=== PATIENT | female | born 1950 | race Caucasian/White ===

== ENCOUNTER 2017-05-06 03:53 | Emergency (ER) | payer MEDICARE, OTHER ==
[~2017-05-06] VITALS: Ht 154.9 cm; Wt 90.7 kg
--- NOTE | 2017-05-06 04:20 | NUR ---
PT A/OX4 BREATHING EFFORTLESSLY ON ROOM AIR, PT C/O RIGHT CALF PAIN X 5 HOURS TAKER AWAY, PT STATES SHE WAS SLEEPING AND WOKE UP FROM THE PAIN, PT ON MONITOR, MD MADE AWARE WILL CONTINUE TO MONITOR.
[2017-05-06] MEDS ORDERED: HYDROCODONE/APAP 5/325MG 1 EACH TABLET ONE (04:53)
[2017-05-06] MEDS ORDERED: HYDROCODONE/APAP 5/325MG 1 EACH TABLET PO ONE (05:00)
--- NOTE | 2017-05-06 05:00 | NUR ---
NORA WAS OUT IN ER [facility], WENT TO [facility] TO GET MEDICATION
[2017-05-06 06:23] VITALS: BP 165/78
== END 2017-05-06 06:24 | disposition home or self-care (01) ==
LOC: ER 03:54
DX: M54.30 Sciatica, unspecified side (principal); E11.9 Type 2 diabetes mellitus without complications; I10 Essential (primary) hypertension; Z86.718 Personal history of other venous thrombosis and embolism
CPT/HCPCS: 93970; 99284; A4606; Z7610

== ENCOUNTER 2018-09-04 02:07 | Emergency (ER) | payer MEDICARE, OTHER ==
[~2018-09-04] VITALS: Ht 167.6 cm; Wt 90.3 kg
--- NOTE | 2018-09-04 02:15 | NUR ---
BIB [facility] FROM HOME. AAOX4. NAD, BREATHING EVEN AND UNLABORED. NO CP. NO N/V. SPEAKS MINIMAL [place] BUT UNDERSTANDS. PT IS AMBULATORY. C/O BURNING SENSATION AND PAIN OF 5/10 ON BILATERAL LEGS BELOW THE KNEE. DENIES FOR ANY TRAUMA OR FALL. MD AT BEDSIDE FOR EVAL.
--- NOTE | 2018-09-04 02:40 | NUR ---
IV LINE OBTAINED ON R AC 20G. BLOOD DRAWN AND SENT TO LAB
[2018-09-04 02:56] LABS: BASOPHILS # (AUTO) 0.1 /CMM (0.0-0.2); BASOPHILS % (AUTO) 1.2 % (0.0-2.0); EOSINOPHILS % (AUTO) 3.4 % (0.0-6.0); HEMATOCRIT 40 % (33-45); HEMOGLOBIN 13.4 g/dL (11.5-14.8); LYMPHOCYTES # (AUTO) 3.2 /CMM (0.8-4.8); LYMPHOCYTES % (AUTO) 42.3 % (20.0-44.0); MEAN CORPUSCULAR HGB CONC 34 g/dl (31.0-36.0); MEAN CORPUSCULAR VOLUME 89 fL (82-100); MONOCYTES # (AUTO) 0.5 /CMM (0.1-1.30); MONOCYTES % (AUTO) 6.7 % (2.0-12.0); NEUTROPHILS # (AUTO) 3.5 /CMM (1.8-8.9); NEUTROPHILS % (AUTO) 46.4 % (43.0-81.0); PLATELET COUNT (AUTO) 257 /CMM (150-450); RED BLOOD CELL COUNT(AUTO) 4.51 MIL/uL (4.0-5.2); WHITE BLOOD COUNT (AUTO) 7.6 K/uL (4.3-11.0)
--- NOTE | 2018-09-04 03:02 | NUR ---
PT AMBULATED TO BATHROOM BY HERSELF WITHOUT ANY ASSISTANCE
[2018-09-04 03:17] LABS: ALANINE AMINOTRANSFERASE 37 U/L (12-78); ALBUMIN 3.7 g/dL (3.4-5.0); ALKALINE PHOSPHATASE 48 U/L (46-116); ASPARTATE AMINOTRANSFERASE 21 U/L (15-37); B-TYPE NATRIURETIC PEPTIDE 26 PG/ML (0-125); BILIRUBIN,TOTAL 0.3 mg/dL (0.2-1.0); CALCIUM, SERUM 9.3 mg/dL (8.5-10.1); CARBON DIOXIDE 26 mmol/L (21-32); CHLORIDE 100 mmol/L (98-107); CREATININE 0.7 mg/dL (0.6-1.3); GLUCOSE 156 mg/dL (74-106); POTASSIUM 4.2 mmol/L (3.5-5.1); SODIUM SERUM 137 mmol/L (136-145); UREA NITROGEN, BLOOD 19 mg/dL (7-18)
--- NOTE | 2018-09-04 03:27 | NUR ---
US TECH IS AT THE BEDSIDE FOR VENOUS DOPPLER.
--- NOTE | 2018-09-04 04:02 | NUR ---
US TECH FINISHED. NEGATIVE FOR DVT.
[2018-09-04 04:10] VITALS: BP 131/70
--- NOTE | 2018-09-04 04:23 | NUR ---
DPatient discharged to home in stable condition. Written and verbal after care instructions given. Patient verbalizes understanding of instruction.
[2018-09-04] MEDS ORDERED: GABAPENTIN 100 MG CAPSULE PO ONE (04:30)
[2018-09-04] MEDS ORDERED: GABAPENTIN 300 MG CAPSULE ONE (04:31)
== END 2018-09-04 04:33 | disposition home or self-care (01) ==
LOC: ER 02:09
DX: I73.9 Peripheral vascular disease, unspecified (principal); I83.93 Asymptomatic varicose veins of bilateral lower extremities; I10 Essential (primary) hypertension; E11.9 Type 2 diabetes mellitus without complications; Z86.718 Personal history of other venous thrombosis and embolism
CPT/HCPCS: 36415; 71045-TC; 80053-TC; 83880; 84484-TC; 85025-TC; 85730-TC; 93970-TC